=== PATIENT | male | born 1995 | race Caucasian/White ===

== ENCOUNTER 2017-06-10 16:07 | Emergency (ER) | payer BC ==
[~2017-06-10] VITALS: Wt 98.0 kg
[~2017-06-10 16:07] MED LIST: CEPH-443 PO; DOCU-159 PO; GABA300C16 PO; IBUP-1542 PO; IBUP800T25 PO; LEVO150T67 PO; OXYC-281 PO; OXYC-283 PO; ZOF8 PO
[2017-06-10] MEDS ORDERED: LIDOCAINE 1% (MDV) 10 ML INJ INJ STA (17:24)
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
[2017-06-10] MEDS ORDERED: IBUP800T25 PO (17:53)
== END 2017-06-10 18:02 | disposition home or self-care (01) ==
LOC: FTE 16:07
DX: L60.0 Ingrowing nail (principal); J45.909 Unspecified asthma, uncomplicated
CPT/HCPCS: 11765; 99283; Z7610

== ENCOUNTER 2018-01-07 13:37 | Emergency (ER) | END 2018-01-07 16:52 | disposition home or self-care (01) ==

== ENCOUNTER 2018-09-20 23:43 | Inpatient (IN) | payer OTHER, BC ==
[~2018-09-20] VITALS: Ht 165.1 cm; Wt 109.3 kg
[~2018-09-20 23:43] MED LIST changes: +ACET325T33 PO; +ALBU8.5H8 INH; -IBUP800T25 PO; +IBUP800T48 PO; -LEVO150T67 PO; +LEVO150T7 PO
[2018-09-20] MEDS ORDERED: SODIUM CHLORIDE 0.9% 1L BAG IV* STA (23:55)
[2018-09-21] MEDS ORDERED: CEFEPIME 2GM/50 ML (PMX) 50 ML IVPB STA (00:45)
[2018-09-21] MEDS ORDERED: VANCOMYCIN 1 GM (PMX) 250 ML IVPB ONE (01:00)
[2018-09-21] MEDS ORDERED: morphine 4 MG/ML VIAL IV STA (01:20)
[2018-09-21] MEDS ORDERED: ONDANSETRON 4 MG INJ IV STA (01:20)
--- NOTE | 2018-09-21 03:27 | ERD ---
ER Documentation Chief Complaint Chief Complaint ugo MOISE, lower back pain: 'like when I had compartment syndrome' HPI This is a 22-year-old male bilateral lower extremity swelling pain and lower back pain. He says it feels similar to when he had compartment syndrome years ago, however this feels somewhat different as well. He said the pain first started a few days ago when he noticed some erythema and induration in by his bilateral lower extremities. He denies any fevers but said he might of had some chills earlier today. No other current complaints. ROS All systems reviewed and are negative except as per history of present illness. Medications Home Meds Active Scripts Albuterol Sulfate* (Proair HFA*) 8.5 Gm Hfa.aer.ad, 2 PUFF INH Q4, #1 INHALER Prov:AUDI CONNOR PA-C 08/31/18 Acetaminophen* (Tylenol*) 325 Mg Tablet, 1 TAB PO Q6 PRN for PAIN AND OR ELEVATED TEMP, #20 TAB Prov:LORNE BARONE PA-C 01/07/18 Ibuprofen* (Motrin*) 600 Mg Tab, 600 MG PO Q6H PRN for PAIN AND OR ELEVATED TEMP, #30 TAB Prov:LORNE BARONE PA-C 01/07/18 Ibuprofen* (Motrin*) 800 Mg Tab, 800 MG PO Q6, #30 TAB Prov:AUDI CONNOR PA-C 06/10/17 Ibuprofen* (Motrin*) 800 Mg Tab, 800 MG PO Q8 PRN for PAIN AND OR ELEVATED TEMP, #30 TAB Prov:JUSTYN VENTURA NP 12/14/15 Ibuprofen* (Motrin*) 800 Mg Tab, 800 MG PO Q6, #15 TAB Prov:JANETTE CARRIZALES NP 10/27/15 Cephalexin* (Keflex*) 500 Mg Capsule, 500 MG PO QID for 5 Days, CAP Prov:JANETTE CARRIZALES NP 10/27/15 Ondansetron Hcl* (Zofran* ODT) 8 mg -ODT Tab.disper, 8 MG PO Q6H PRN for NAUSEA AND OR VOMITING, #10 TAB Prov:PHUONG VOGEL PA-C 04/12/15 Oxycodone Hcl-Acetaminophen* (Percocet*) 7.5-325 Mg Tablet, 1 TAB PO Q4H PRN for PAIN, #14 TAB Prov:PHUONG VOGEL PA-C 04/12/15 Ibuprofen* (Motrin*) 600 Mg Tab, 600 MG PO Q6, #20 TAB Prov:PHUONG VOGEL PA-C 04/12/15 Reported Medications Docusate Sodium* (Docusate Sodium*) 100 Mg Capsule, 100 MG PO DAILY, CAP 11/21/14 Levothyroxine Sodium* (Levothyroxine Sodium*) 150 Mcg Tablet, 150 MCG PO AC BREAKFAST, TAB 11/21/14 Gabapentin* (Gabapentin*) 300 Mg Capsule, 300 MG PO TID, CAP 11/21/14 Oxycodone Hcl-Acetaminophen* (Percocet*) 5-325 Mg Tablet, 2 TAB PO Q4H PRN for PAIN, TAB 11/21/14 Allergies Allergies: Coded Allergies: No Known Drug Allergies (Verified Allergy, Unknown, 01/07/18) PMhx/Soc History of Surgery: Yes (bilateral leg fasciotomy) Anesthesia Reaction: No Hx Neurological Disorder: No Hx Respiratory Disorders: No Hx Cardiac Disorders: No Hx Psychiatric Problems: No Hx Miscellaneous Medical Probl: No Hx Alcohol Use: No Hx Substance Use: No Hx Tobacco Use: No Smoking Status: Current every day smoker Physical Exam Vitals Vital Signs Date Temp Pulse Resp B/P (MAP) Pulse Ox O2 O2 Flow FiO2 Time Delivery Rate 09/21/18 100.3 107 21 100/77 99 Room Air 02:59 (85) 09/21/18 100.3 107 14 114/72 100 Room Air 01:50 (86) 09/21/18 100.3 111 16 112/60 98 Room Air 01:06 (77) 09/21/18 100.3 113 21 138/116 99 Room Air 00:33 (123) 09/21/18 100.3 135 21 128/88 99 Room Air 00:04 (101) 09/20/18 100.3 120 18 153/85 97 23:49 (107) Physical Exam Const: No acute distress Head: Atraumatic Eyes: Normal Conjunctiva ENT: Normal External Ears, Nose and Mouth. Neck: Full range of motion. No meningismus. Resp: Clear to auscultation bilaterally Cardio: Regular rate and rhythm, no murmurs Abd: Soft, non tender, non distended. Normal bowel sounds Skin: Erythema and induration noted to the midcalf bilaterally worse on the right than the left. Negative Homans sign bilaterally Back: No midline or flank tenderness Ext: No cyanosis, or edema Neur: Awake and alert Psych: Normal Mood and Affect Result Diagram: 09/21/18 0015 09/21/18 0015 Results 24 hrs Laboratory Tests Test 09/21/18 00:15 09/21/18 01:45 White Blood Count 8.8 10^3/ul Red Blood Count 5.39 10^6/ul Hemoglobin 14.6 g/dl Hematocrit 44.8 % Mean Corpuscular Volume 83.1 fl Mean Corpuscular Hemoglobin 27.1 pg Mean Corpuscular Hemoglobin Concent 32.6 g/dl Red Cell Distribution Width 13.5 % Platelet Count 349 10^3/UL Mean Platelet Volume 9.5 fl Immature Granulocytes % 0.500 % Neutrophils % 76.0 % Lymphocytes % 13.5 % Monocytes % 6.6 % Eosinophils % 3.1 % Basophils % 0.3 % Nucleated Red Blood Cells % 0.0 /100WBC Immature Granulocytes # 0.040 10^3/ul Neutrophils # 6.7 10^3/ul Lymphocytes # 1.2 10^3/ul Monocytes # 0.6 10^3/ul Eosinophils # 0.3 10^3/ul Basophils # 0.0 10^3/ul Nucleated Red Blood Cells # 0.0 10^3/ul Prothrombin Time 12.8 Sec Prothrombin Time Ratio 1.0 INR International Normalized Ratio 0.95 Activated Partial Thromboplast Time 31.9 Sec Sodium Level 139 mmol/L Potassium Level 3.9 mmol/L Chloride Level 102 mmol/L Carbon Dioxide Level 23 mmol/L Anion Gap 14 Blood Urea Nitrogen 13 mg/dl Creatinine 0.98 mg/dl Est Glomerular Filtrat Rate mL/min > 60 mL/min Glucose Level 118 mg/dl Lactic Acid Level 2.4 mmol/L Calcium Level 9.6 mg/dl Total Bilirubin 0.4 mg/dl Direct Bilirubin 0.00 mg/dl Indirect Bilirubin 0.4 mg/dl Aspartate Amino Transf (AST/SGOT) 54 IU/L Alanine Aminotransferase (ALT/SGPT) 73 IU/L Alkaline Phosphatase 126 IU/L Troponin I 0.015 ng/ml Total Protein 8.4 g/dl Albumin 4.7 g/dl Globulin 3.70 g/dl Albumin/Globulin Ratio 1.27 Urine Color YELLOW Urine Clarity CLEAR Urine pH 5.0 Urine Specific [place] 1.015 Urine Ketones NEGATIVE mg/dL Urine Nitrite NEGATIVE mg/dL Urine Bilirubin NEGATIVE mg/dL Urine Urobilinogen NEGATIVE mg/dL Urine Leukocyte Esterase NEGATIVE Lianna/ul Urine Microscopic RBC 1 /HPF Urine Microscopic WBC 1 /HPF Urine Hemoglobin 1+ mg/dL Urine Glucose NEGATIVE mg/dL Urine Total Protein NEGATIVE mg/dl Current Medications Medications Dose Sig/Bekah Start Time Status Last (Trade) Ordered Route PRN Stop Time Admin Dose Reason Admin Sodium 3,250 ml BOLUS OVER 2 09/20/18 DC 09/20/18 Chloride HOURS STAT 23:55 09/20/18 23:55 (NS) IV* 23:57 Cefepime HCl 50 ml @ ONCE STAT 09/21/18 DC 09/21/18 100 mls/hr IVPB 00:45 09/21/18 01:15 01:14 Vancomycin 250 ml @ ONCE ONCE 09/21/18 DC 09/21/18 HCl 125 mls/hr IVPB 01:00 09/21/18 01:33 02:59 Morphine 4 mg ONCE STAT 09/21/18 DC 09/21/18 Sulfate IV 01:20 09/21/18 01:25 (morphine) 01:21 Ondansetron 4 mg ONCE STAT 09/21/18 DC 09/21/18 HCl (Zofran IV 01:20 09/21/18 01:25 Inj) 01:21 Procedures/MDM EKG: Rate/Rhythm: [Normal Sinus Rhythm] QRS, ST, T-waves: [No changes consistent w/ acute ischemia] Impression: [No evidence of ischemia or arrhythmia] Chest X-ray 1V Interpreted by me: Soft Tissue: No acute abnormalit ies Bones: No acute abnormalities Mediastinum/Cardiac Silhouette/Lungs: [No acute abnormalities] Patient's infectious symptoms have not stabilized and the patient is at risk of rapid decompensation. The patient will be admitted for careful hydration, antibiotic therapy, and infectious source control. Severe Sepsis Assessment: Infectious Source: Cellulitis End organ damage indicated by: [Lactate > 2.0 mmol/L Severe Sepsis Managment: Blood Cultures X 2 before broad spectrum antibiotics initiated within 3 hours of recognition. 30 ml/kg NS bolus Completed Initial Lactate: 2.4 Repeat Lactate pending Critical Care: Time: 35 minutes, independent of separately billable procedural time Treatments/Evaluations: Emergent fluid management, while maintaining close respiratory support. Immediate broad spectrum antibiotic therapy. Simultaneous assessment for possible sources in order to direct therapy. Consideration for invasive and chemical support to prevent respiratory or cardiac collapse. Septic Shock Assessment (1 hour post 30 ml/kg fluid bolus): Hypotension (SBP < 90 or 40 mmHg drop, MAP < 65): [No] Lactic acid > 4.0 [No] Perfusion Reassessment for Septic Shock: 98.6, pulse 87, respirations 16, blood pressure 116/74 Heart Exam: [Tachycardic] Lung Exam: [No Crackles] Capillary Refill: [Delayed] Peripheral Pulses: [Radially present] Skin: [Mottled, pale] Accepting Care Team: Current data and ongoing care discussed. Time: 12:30 AM Primary Provider: Hospitalist Consulting: Deferred to inpatient team Outstanding Data: none Departure Diagnosis: Primary Impression: Sepsis Sepsis type: sepsis due to unspecified organism Qualified Codes: A41.9 - Sepsis, unspecified organism Additional Impression: Cellulitis Site of cellulitis: unspecified site Qualified Codes: L03.90 - Cellulitis, unspecified Condition: Serious FARIDA QUIROZ Sep 21, 2018 03:26
[2018-09-21 03:47] VITALS: BP 103/59; PULSE 114; RESP 19
[2018-09-21] MEDS ORDERED: NACL 0.9% 3 ML SYG IV SCH (04:30)
[2018-09-21] MEDS ORDERED: HYDROCODONE/APAP (5/325) TAB PO PRN ×2 (04:30)
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
[2018-09-21] MEDS ORDERED: VANCOMYCIN IV PER PHARMACY XX SCH (06:30)
[2018-09-21 07:24] VITALS: BP 113/60; PULSE 93; RESP 20
[2018-09-21] MEDS ORDERED: VANCOMYCIN HCL 1.75 GM in SOD CHLORIDE 0.9% 500 ML IVPB SCH (08:00)
[2018-09-21] MEDS: HEPARIN 5,000 UNIT/1 ML VIAL SC SCH ×2 (08:16→20:45)
[2018-09-21] MEDS ORDERED: CEFEPIME 1GM/50 ML (PMX) 50 ML IVPB SCH ×2 (09:00→12:00)
[2018-09-21 15:02] VITALS: BP 110/65; PULSE 105; RESP 20
--- NOTE | 2018-09-21 17:37 | QN ---
Documentation Comment admitted earlier to day for sepsis with unknown source 1. SIRS with lactic acidosis -only abnormality so far are his LFTs. ?Hepatitis -RUQ USS and trend levels 2. Chronic pain from severe compartment syndrome in osmin LE s/p surgical repair with large defect R leg and multiple scars both LE -patient says only dilaudid and CBD oil works for his pain -he sees pain mgt as outpt and is on Cymbalta, motrin and CBD oil -wants to use dilaudid sparingly while inpatient -doesn't want to try lower strength opiate 2/2 lack of efficacy 3. Obesity -s/p counselling 4. Chronic debility -can only walk short distances and uses his wheel chair as adjunct 5. chronic hypothyroidism -resume home synthroid, check TSH 6. Chronic migraines: -patient unhappy with prior o/p care, states it feels he's had headaches almost daily for 9 years, concerned that there may be more sinister underlying cause -Neurology consult -MRI brain Further interventions per course DEVORA HUNT Sep 21, 2018 17:37
[2018-09-21] MEDS ORDERED: IBUPROFEN 400 MG TAB PO PRN (18:00)
[2018-09-21] MEDS: HYDROmorphONE 2 MG TAB PO PRN (18:53)
[2018-09-21 19:23] VITALS: BP 97/60; PULSE 64; RESP 16
[2018-09-21 20:03] VITALS: Ht 165.1 cm; Wt 109.3 kg
[2018-09-21] MEDS: DULOXETINE 30 MG CAP DR PO SCH (20:43)
[2018-09-21] MEDS: ACETAMINOPHEN 325 MG TAB PO PRN (22:59)
[2018-09-22 01:51] VITALS: BP 99/58; PULSE 95; RESP 16
[2018-09-22] MEDS: ONDANSETRON 4 MG INJ IV PRN ×2 (05:20→12:10)
[2018-09-22] MEDS: ACETAMINOPHEN 325 MG TAB PO PRN ×2 (05:21→17:27)
[2018-09-22] MEDS ORDERED: LEVOTHYROXINE 150 MCG TAB PO SCH (07:00)
[2018-09-22 07:38] VITALS: BP 121/77; PULSE 91; RESP 20
[2018-09-22] MEDS: DULOXETINE 30 MG CAP DR PO SCH (08:18)
[2018-09-22] MEDS: HEPARIN 5,000 UNIT/1 ML VIAL SC SCH (08:28)
[2018-09-22] MEDS ORDERED: DOCUSATE SODIUM 100 MG CAP PO SCH (09:00)
[2018-09-22] MEDS ORDERED: DULO30CA45 PO (09:50)
[2018-09-22] MEDS: HYDROmorphONE 2 MG TAB PO PRN (09:51)
--- NOTE | 2018-09-22 09:54 | PDOCDIS ---
Discharge Instructions CONDITION [id number] Patient Condition: Xanog0c Stable HOME CARE INSTRUCTIONS: [id number] Diet Instructions: [id number] Reduced Calorie [id number] Your diet recommendation is: [id number] Activity Restrictions: Uacan1w Slowly Increase Activity Rest between Activity FOLLOW UP/APPOINTMENTS Follow-up Plan 1. Try to maintain a daily exercise regimen. Daily exercise will help strengthen the muscles in your legs and hopefully reduce your pain 2. Maintain follow-up with your primary care doctor as frequently as possible, try to build a good relationship with them, discussed all your medical concerns with them as much as possible. 3. You may also follow-up with Dr. GARCIA for neurology, will continue previous neurology follow-up with Dr. BARRERA Name, Degree : Leslee Garcia MD Specialty : Neurology Office Address: [id number] [place] [address]. [address] [address] Office Office 4. Review your medication list with your nurse before leaving and if you need new prescriptions please let your nurse know. 5. I may have made changes to your home medications or given you new prescriptions, please let your primary doctor know as well. 6. Stay compliant with your medications and report any side effects to your PCP or pharmacist. 7. Return to the ER if you have any concerns and cannot reach your doctors or call your insurance company, they usually have a nurse that can help you. . DEVORA HUNT Sep 22, 2018 09:54
[2018-09-22] MEDS ORDERED: CLIN300C10 PO (10:12)
[2018-09-22] MEDS ORDERED: LACT1CAP47 PO (10:12)
[2018-09-22] MEDS ORDERED: VANCOMYCIN 1 GM (PMX) 250 ML IVPB ONE (10:30)
--- NOTE | 2018-09-22 10:43 | DS ---
DATE OF ADMISSION: 09/21/2018 DATE OF DISCHARGE: 09/22/2018 FINAL DIAGNOSES: 1. Systemic inflammatory response syndrome course not exactly clear, likely viral syndrome. 2. Chronic transaminitis secondary to hepatic steatosis. 3. Morbid obesity. 4. Chronic lower extremity pain secondary to #5. 5. History of severe compartment syndrome in bilateral lower extremities that required extensive rangel estefany with areas of muscle dehiscence and chronic neuropathic pain that has left the patient somewhat debilitated. -- The patient is able to ambulate, but for only short distances and spends a lot of time in a wheelc hair, he has also seen a painter ski edge for chronic neuropathic pain associated with this . -- patient used to be a football player in high school. 7. Chronic migraines. 8. Chronic hypothyroidism on Synthroid, with evidence of good control. 9. Consults on the case were Dr. Leslee Martines from neurology interventions. 9. The patient has blood cultures that have been negative since admission. 10. The only abnormality noted was a mild transaminitis and he was worked up with hepatitis profile, which has come back negative and also had liver ultrasound that just shows diffuse steatosis and als o interesting thing is his liver function tests are stable. They have not trended up, nor down signi ficantly and so this is a likely chronic thing for him. 11. The patient also underwent MRI of the brain because he says that has been having almost persiste nt headache for 9 years and he wanted to make sure that there was no other occult pathology going on and has come back negative. There was an incidental finding of a retention cyst. He also had lower extremity venous studies that showed no DVT. The patient also had a chest x-ray also that was negati ve for acute intrathoracic pathology. SHORT HOSPITALIZATION COURSE: Full details are available in the chart for review. Basically this pa mook came in with complaints of back and lower extremity pain. He has had a history of bilateral lo wer extremity fasciotomy and open reduction internal fixation in his legs. There was concern for sep sis for which the cause was not quite clear. He did well in house was treated with empiric antibioti cs and at this point is being managed for lower extremity previous superficial cellulitis that has im proved. Unfortunately, at the time of my review, his symptoms are almost all but completely resolved and overall he is stable for discharge and will continue treatment for lower extremity cellulitis at home. DISCHARGE MEDICATIONS: 1. Cymbalta 30 mg daily. 2. Tylenol p.r.n. 3. Albuterol p.r.n. 4. Colace 100 daily. 5. Ibuprofen 800 q.6h. p.r.n. 6. Levothyroxine 150 mcg daily. 7. Zofran 8 mg q.6h. 8. Clindamycin at 300 mg every 8 hours. DISCHARGE CONDITION: Stable. ACTIVITY: The patient is encouraged to live an active life and exercise as much as possible to impro ve strength in his lower extremity and also to follow up with primary care doctor and neurology as o utpatient. Time spent on discharge coordination has been about 1 hour. Dictated By: DEVORA HUNT MD, BA/KARRIE Conf#: [id number] DID#: [id number]
[2018-09-22] MEDS ORDERED: MAGNESIUM SULFATE 2 GM/50 ML 50 ML IVPB ONE (11:00)
[2018-09-22] MEDS ORDERED: LACTOBACILLUS RHAMNOSUS CAP PO SCH (11:30)
[2018-09-22 13:27] VITALS: BP 128/69; PULSE 97; RESP 20
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
== END 2018-09-22 19:15 | disposition home or self-care (01) | DRG 866 ==
LOC: E/R 23:43 → 2NE 09-21 01:46
PROVIDERS: ADMIT Internal Medicine; ATTEND Internal Medicine
DX: B34.9 Viral infection, unspecified (principal); E87.2 Acidosis; R65.10 Systemic inflammatory response syndrome (SIRS) of non-infectious origin without acute organ dysfunction; Z68.41 Body mass index [BMI] 40.0-44.9, adult; E66.01 Morbid (severe) obesity due to excess calories; K76.0 Fatty (change of) liver, not elsewhere classified; E03.9 Hypothyroidism, unspecified; G43.909 Migraine, unspecified, not intractable, without status migrainosus
CPT/HCPCS: 36415; 70553; 71045; 74018; 76705; 80053; 80307; 81001; 83605; 83735; 84100; 84443; 84484; 85025; 85610; 85730; 86704; 86706; 86803; 87040; 87086; 87340; 93005; 93970; 96374; 96375; J0692; J1170; J1644; J2270; J2405; J3370; J3475; J7030; J7040

== ENCOUNTER → 2018-10-27 | Emergency (ER) | payer BC, OTHER ==
[~2018-10-27] VITALS: Ht 162.6 cm; Wt 107.7 kg
[~2018-10-27] MED LIST changes: -CEPH-443 PO; +CLIN300C10 PO; +DULO30CA45 PO; -GABA300C16 PO; -IBUP-1542 PO; +LACT1CAP47 PO; -OXYC-281 PO; -OXYC-283 PO
[2018-10-27 17:02] VITALS: BP 146/85; PULSE 96; RESP 17; Ht 162.6 cm; Wt 107.7 kg
== END | disposition left against medical advice (07) ==
LOC: E/R 16:52
DX: Z53.21 Procedure and treatment not carried out due to patient leaving prior to being seen by health care provider (principal)